=== PATIENT | male | born 1975 | race Caucasian/White ===

== ENCOUNTER 2018-05-04 23:46 | Emergency (ER) | payer OTHER ==
--- NOTE | 2018-05-05 00:25 | C.PDOC ---
History Of Present Illness The patient presents to the ED for evaluation after sustaining facial trauma at work earlier today. Patient states a door fell onto his face, causing him to fall to the ground. Patient denies loss of consciousness at the time. Patient then went home, had two episodes of vomiting, and presents to the ED for further evaluation. He denies any other injuries or extremity numbness/weakness at this time. - HPI Time Seen by Provider: 05/05/18 00:24 Chief Complaint (Nursing): Trauma History Per: Patient History/Exam Limitations: no limitations Onset/Duration Of Symptoms: Hrs Injury Occurred (Timing): Hours Ago: Recent travel outside of the [place]: No Additional History Per: Patient Past Medical History Reviewed: Historical Data, Nursing Documentation, Vital Signs Vital Signs: Last Vital Signs Temp 98.1 F 05/04/18 23:55 Pulse 77 05/04/18 23:55 Resp 20 05/04/18 23:55 BP 127/77 05/04/18 23:55 Pulse Ox 97 05/04/18 23:55 - Medical History PMH: Asthma Surgical History: No Surg Hx Family History: States: Unknown Family Hx - Social History Hx Alcohol Use: No Hx Substance Use: No Review Of Systems Cardiovascular: Negative for: Chest Pain, Palpitations Respiratory: Negative for: Cough, Shortness of Breath Gastrointestinal: Positive for: Vomiting Musculoskeletal: Negative for: Neck Pain, Shoulder Pain, Arm Pain, Back Pain Skin: Positive for: Other (facial trauma ). Negative for: Rash, Lesions, Jaundice, Bruising Neurological: Negative for: Weakness, Numbness, Other (loss of consciousness ) Physical Exam - Physical Exam Appears: Non-toxic, No Acute Distress Skin: Warm, Dry Head: Normacephalic Eye(s): bilateral: Normal Inspection Ear(s): Bilateral: Normal Nose: No Septal Hematoma, Other (1.5cm abrasion to nose bridge. no active bleeding ) Oral Mucosa: Moist Neck: Supple Chest: Symmetrical, No Deformity, No Tenderness Cardiovascular: Rhythm Regular Respiratory: No Rales, No Rhonchi, No Wheezing Gastrointestinal/Abdominal: Soft, No Tenderness Extremity: Normal ROM, Capillary Refill (less than 2 seconds ) Neurological/Psych: Oriented x3 ED Course And Treatment O2 Sat by Pulse Oximetry: 97 (on RA) Pulse Ox Interpretation: Normal Progress Note: CT Head and CT Orbits/Facial ordered. Motrin PO given. Reevaluation Time: 02:56 Reassessment Condition: Improved Medical Decision Making Medical Decision Making: Upon provider reevaluation patient is feeling better, is medically stable, and requires no further treatment in the ED at this time. Patient will be discharged home with Rx for motrin . Counseling was provided and all questions were answered regarding diagnosis and need for follow up with the referred clinic. There is agreement to discharge plan. Return if symptoms persist or worsen. Disposition Counseled Patient/Family Regarding: Studies Performed, Diagnosis, Need For Followup - Disposition Referrals: [facility] [Outside] Disposition: HOME/ ROUTINE Disposition Time: 00:24 Condition: FAIR Additional Instructions: Please return if having 4-5 episodes of vomiting, visual changes, intractable headache Instructions: Minor Head Injury (DC), Contusion (DC) Forms: [employer] (Romansh) - Clinical Impression Clinical Impression: Nasal contusion, Minor head injury without loss of consciousness - Scribe Statement The provider has reviewed the documentation as recorded by the Scribe (Zoey Brunner) Provider Attestation: All medical record entries made by the Scribe were at my direction and personally dictated by me. I have reviewed the chart and agree that the record accurately reflects my personal performance of the history, physical exam, medical decision making, and the department course for this patient. I have also personally directed, reviewed, and agree with the discharge instructions and disposition.
[2018-05-05 03:18] VITALS: BP 127/78; PULSE 89; RESP 17; TEMP 97.6; O2SAT 100
--- NOTE | 2018-05-05 08:27 | CT ---
Date of service: 05/05/2018 PROCEDURE: CT HEAD WITHOUT CONTRAST. HISTORY: Fell. Head injury. COMPARISON: None available. TECHNIQUE: Axial computed tomography images were obtained through the head/brain without intravenous contrast. Radiation dose: Total exam DLP = 1118.1 mGy-cm. This CT exam was performed using one or more of the following dose reduction techniques: Automated exposure control, adjustment of the mA and/or kV according to patient size, and/or use of iterative reconstruction technique. FINDINGS: HEMORRHAGE: No intracranial hemorrhage. BRAIN: No mass effect or edema. No atrophy or chronic microvascular ischemic changes. VENTRICLES: Unremarkable. No hydrocephalus. CALVARIUM: Unremarkable. PARANASAL SINUSES: Unremarkable as visualized. No significant inflammatory changes. MASTOID AIR CELLS: Unremarkable as visualized. No inflammatory changes. OTHER FINDINGS: None. IMPRESSION: No acute intracranial abnormality. If symptoms persists, consider correlation with MRI. A preliminary report was generated at 2:42 a.m. on 05/05/[address] Kathleen Hagen from [facility].
--- NOTE | 2018-05-05 08:34 | CT ---
CT maxillofacial HISTORY: Fall. COMPARISON: None available. Technique: Multiple contiguous axial images were performed through the maxillofacial region without the use of intravenous contrast. Subsequently, sagittal and coronal reformatted images were obtained. This CT exam was performed using one or more of the following dose reduction techniques: Automated exposure control, adjustment of the mA and/or kV according to patient size, and/or use of iterative reconstruction technique. Findings: Mild mucosal thickening of the bilateral maxillary sinuses. Sphenoid sinus is preserved. Mild mucosal thickening of the ethmoid air cells. Mild mucosal thickening of the frontal sinus. Bilateral mastoid air cells are preserved. Mild soft tissue swelling overlying the frontal cranium. Bilateral orbital globes are preserved. Narrowing at the atlantodental interval with some sclerosis and bony hypertrophy. Rightward nasal septal deviation. Mild mucosal thickening and hypertrophy of the middle and inferior nasal turbinates. Impression: Mild sinus mucosal disease. Mild soft tissue swelling overlying the frontal cranium. Otherwise negative acute. A preliminary report was generated at 2:42 a.m. on 05/05/[address] Kathleen Hagen from [facility].
== END 2018-05-05 03:00 | disposition home or self-care (01) ==
LOC: C.ER 23:46
DX: S00.33XA Contusion of nose, initial encounter (principal); W22.8XXA Striking against or struck by other objects, initial encounter; Y92.89 Other specified places as the place of occurrence of the external cause; Y99.0 Civilian activity done for income or pay